=== PATIENT | female | born 1965 | race Caucasian/White ===

== ENCOUNTER 2019-07-17 14:35 | Emergency (ER) | payer OTHER, SELFPAY ==
--- OUTSIDE RECORDS SUMMARY | 2019-07-17 14:38 | XMS REPORT ---
:1965 [facility] Address [address] [place] [address] Dr. Beltran [address] [place] [id number] Care Team Providers Name Role Phone Unavailable Unavailable Unavailable Problems This patient has no known problems. Allergies, Adverse Reactions, Alerts This patient has no known allergies or adverse reactions. Medications This patient has no known medications. Encounters Start End Encounter Admission Attending Care Care Encounter Date/Time Date/Time Type Type Clinicians Facility Department ID 2018-12-03 2018-12-03 Outpatient [facility] [place] [id number] 11:40:00 11:40:00
[2019-07-17] MEDS ORDERED: LIDOCAINE 1% MPF 5 ML VIAL ONE (15:53)
[2019-07-17] MEDS ORDERED: BUPIVACAINE 0.5% PF 10 ML VIAL ONE (15:53)
--- NOTE | 2019-07-17 16:12 | EDPHYS ---
Physician Documentation [facility] Name: Michelle Lewis Age: 53 yrs Sex: Female : 1965 Arrival Date: 07/17/2019 Time: 14:38 Bed 8 Private MD: ED Physician Magalie Sneed HPI: 07/17 15:34 This 53 yrs old Female presents to ER via Ambulatory with complaints of jmm Laceration To Hand. 15:34 The patient has a laceration related to: doing carpentry. Onset: The symptoms/episode jmm began/occurred acutely. The patient has not experienced similar symptoms in the past. This is a 53 year old female with a history of bipolar that presents to the ED with complaints of pain and bleeding to her right thumb after accidently cutting her right thumb with a Dremel saw. Patient states she it UTD on immunizations. . 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 - Social history:: Smoking status: Patient denies any tobacco usage or history of. - Ebola Screening: : No symptoms or risks identified at this time. ROS: 15:34 Constitutional: Negative for fever, chills, and weight loss, Cardiovascular: Negative jmm for chest pain, palpitations, and edema, Respiratory: Negative for shortness of breath, cough, wheezing, and pleuritic chest pain. 15:34 MS/extremity: Positive for injury or acute deformity, laceration. 15:34 All other systems are negative. Exam: 15:34 Constitutional: This is a well developed, well nourished patient who is awake, alert, jmm and in no acute distress. Head/Face: atraumatic. Eyes: EOMI, no conjunctival erythema appreciated ENT: Moist Mucus Membranes Neck: Trachea midline, Supple Chest/axilla: Normal chest wall appearance and motion. Cardiovascular: Regular rate and rhythm. No edema appreciated Respiratory: Normal respirations, no respiratory distress appreciated Abdomen/GI: Non distended, soft Back: Normal ROM 15:34 Musculoskeletal/extremity: FROM appreciated to the right thumb against resistance, < 2 sec dist cap refill, NVI. 15:34 Skin: laceration noted to the right thumb. 15:34 Neuro: Orientation: is normal, Mentation: is normal, Memory: is normal. 15:34 Psych: Behavior/mood is pleasant, cooperative. Vital Signs: 15:17 BP 135 / 74; Pulse 92; Resp 16 S; Temp 97.3(O); Pulse Ox 96% on R/A; Pain 6/10; jl7 Laceration: 16:10 Wound Repair of 2cm ( 0.8in ) subcutaneous laceration to right hand and dorsal aspect jmm of proximal phalanx of right thumb. Distal neuro/vascular/tendon intact. Anesthesia: Local anesthetic administered with 3 mls of 1% lidocaine. Wound prep: Simple cleansing, Moderate cleansing with betadine by me. Skin closed with 4 5-0 Prolene using simple sutures and sterile technique. Patient tolerated well. MDM: 15:33 Patient medically screened. m 16:10 Data reviewed: vital signs, nurses notes. Counseling: I had a detailed discussion with jose carlos the patient and/or guardian regarding: the historical points, exam findings, and any diagnostic results supporting the discharge/admit diagnosis, the need for outpatient follow up, to return to the emergency department if symptoms worsen or persist or if there are any questions or concerns that arise at home. ED course: Patient given wound infection return precautions. Patient understood and agrees with the plan of care. . Administered Medications: 15:58 Drug: Lidocaine (1 %) 5 ml {Note: by DIANE Florez.} Volume: 5 ml; Route: Infiltration; hb 15:59 Drug: Marcaine (0.5 %) 10 ml {Note: by DIANE Florez.} Volume: 10 ml; Route: Infiltration; hb Disposition: 18:20 Co-signature as Attending Physician, Magalie Sneed MD. ma2 Disposition: 07/17/19 16:12 Discharged to Home. Impression: Laceration of the Right Thumb. - Condition is Stable. - Discharge Instructions: Laceration Care, Adult. - Prescriptions for Cephalexin 500 mg Oral Capsule - take 1 capsule by ORAL route every 6 hours for 10 days; 40 capsule. - Medication Reconciliation Form, Thank You Letter, Antibiotic Education, Prescription Opioid Use form. - Follow up: Private Physician; When: 7 - 10 days; Reason: Recheck today's complaints, Continuance of care, Staple/Suture removal, Re-evaluation by your physician. Signatures: Gautam Casiano PA PA jmm Baxter, Heather, RN RN Rey Robertson RN RN jl7 Magalie Sneed MD MD ma2 Corrections: (The following items were deleted from the chart) 16:35 16:12 07/17/2019 16:12 Discharged to Home. Impression: Laceration of the Right Thumb. hb Condition is Stable. Forms are Medication Reconciliation Form, Thank You Letter, Antibiotic Education, Prescription Opioid Use. Follow up: Private Physician; When: 7 - 10 days; Reason: Recheck today's complaints, Continuance of care, Staple/Suture removal, Re-evaluation by your physician. jose carlos
--- NOTE | 2019-07-17 16:12 | ER ---
Nurse's Notes [facility] Name: Michelle Lewis Age: 53 yrs Sex: Female : 1965 Arrival Date: 07/17/2019 Time: 14:38 Bed 8 Private MD: Diagnosis: Laceration of the Right Thumb Presentation: 07/17 15:14 Presenting complaint: Patient states: Cut right thumb on handsaw saw 30 minutes ago. jl7 Transition of care: patient was not received from another setting of care. Complicating Factors: There are no complicating factors for this patient. Onset of symptoms was July 17, 2019 at 14:30. Risk Assessment: Do you want to hurt yourself or someone else? Patient reports no desire to harm self or others. Initial Sepsis Screen: Does the patient meet any 2 criteria? No. Patient's initial sepsis screen is negative. Does the patient have a suspected source of infection? No. Patient's initial sepsis screen is negative. Care prior to arrival: Bleeding of injury controlled. 15:14 Method Of Arrival: Ambulatory [facility] 15:14 Acuity: RO 4 jl7 Triage Assessment: 15:17 General: Appears in no apparent distress. uncomfortable, Behavior is cooperative, jl7 anxious. Pain: Complains of pain in right thumb Pain currently is 6 out of 10 on a pain scale. Quality of pain is described as throbbing. Injury Description: Laceration sustained to dorsal aspect of proximal phalanx of right thumb is 2.6 to 7.5 cm long, was sustained 30-60 minutes ago. is bleeding a small amount. 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 - Social history:: Smoking status: Patient denies any tobacco usage or history of. - Ebola Screening: : No symptoms or risks identified at this time. Screenin:56 Abuse screen: Denies threats or abuse. Denies injuries from another. Nutritional hb screening: No deficits noted. Tuberculosis screening: No symptoms or risk factors identified. Fall Risk None identified. Assessment: 15:50 General: Appears in no apparent distress. Pain: Pain currently is 5 out of 10 on a pain hb scale. Neuro: Level of Consciousness is awake, alert, obeys commands, Oriented to person, place, time, situation. Cardiovascular: Capillary refill < 3 seconds Patient's skin is warm and dry. Respiratory: Airway is patent Respiratory effort is even, unlabored, Respiratory pattern is regular, symmetrical. GI: No signs and/or symptoms were reported involving the gastrointestinal system. : No signs and/or symptoms were reported regarding the genitourinary system. EENT: No signs and/or symptoms were reported regarding the EENT system. Derm: Skin is pink, warm \T\ dry. Musculoskeletal: No signs and/or symptoms reported regarding the musculoskeletal system. Injury Description: Laceration sustained to dorsal aspect of proximal phalanx of right thumb is clean, 2.6 to 7.5 cm long, light bleeding was sustained 30-60 minutes ago. 15:58 Reassessment: DIANE Florez at bedside for laceration repair. hb 16:30 Reassessment: Patient appears in no apparent distress at this time. Patient and/or hb family updated on plan of care and expected duration. Pain level reassessed. Patient is alert, oriented x 3, equal unlabored respirations, skin warm/dry/pink. Vital Signs: 15:17 BP 135 / 74; Pulse 92; Resp 16 S; Temp 97.3(O); Pulse Ox 96% on R/A; Pain 6/10; jl7 ED Course: 14:38 Patient arrived in ED. rg4 15:15 Triage completed. jl7 15:17 Arm band placed on right wrist. jl7 15:22 Gautam Casiano PA is PHCP. [facility] 15:22 Magalie Sneed MD is Attending Physician. [facility] 15:50 Patient has correct armband on for positive identification. Bed in low position. Call hb light in reach. 15:56 [address] Crooks, NIDA is Primary Nurse. hb 16:30 No provider procedures requiring assistance completed. Patient did not have IV access hb during this emergency room visit. Administered Medications: 15:58 Drug: Lidocaine (1 %) 5 ml {Note: by DIANE Florez.} Volume: 5 ml; Route: Infiltration; hb 15:59 Drug: Marcaine (0.5 %) 10 ml {Note: by DIANE Florez.} Volume: 10 ml; Route: Infiltration; hb Outcome: 16:12 Discharge ordered by MD. branch 16:30 Discharged to home ambulatory, with significant other. hb 16:30 Condition: stable 16:30 Discharge instructions given to patient, Instructed on discharge instructions, follow up and referral plans. medication usage, wound care, Demonstrated understanding of instructions, follow-up care, medications, wound care, Prescriptions given X 1. 16:35 Patient left the ED. hb Signatures: Gautam Casiano PA PA jmm Baxter, Heather, RN RN Julita Krause rg4 Rey Robertson RN RN jl7 Corrections: (The following items were deleted from the chart) 15:21 15:17 BP 135 / 74; Pulse 92bpm; Resp 16bpm; Spontaneous; Pulse Ox 96% RA; Temp 97.3F jl7 Oral; Pain 10/10; jl7
[2019-07-17 16:48] VITALS: BP 135/74; TEMP 97.3; O2SAT 96
== END 2019-07-17 16:35 | disposition home or self-care (01) ==
LOC: ER 14:35
PROC: 0JQJ0ZZ Repair Right Hand Subcutaneous Tissue and Fascia, Open Approach (ICD-10-PCS; principal; 2019-07-17)
DX: S61.011A Laceration without foreign body of right thumb without damage to nail, initial encounter (principal); W29.8XXA Contact with other powered hand tools and household machinery, initial encounter; Y93.89 Activity, other specified; Y92.9 Unspecified place or not applicable; E03.9 Hypothyroidism, unspecified; F31.9 Bipolar disorder, unspecified; Z93.1 Gastrostomy status
CPT/HCPCS: 99283

== ENCOUNTER 2020-11-19 07:59 | Emergency (ER) | payer SELFPAY ==
--- OUTSIDE RECORDS SUMMARY | 2020-11-19 08:02 | XMS REPORT | Continuity of Care Document ---
:1965 Author Organization [facility] t Address [address] [place] [address] Dr. Beltran [address] [place] [id number] Care Team Providers Name Role Phone Unavailable Unavailable Unavailable Problems This patient has no known problems. Allergies, Adverse Reactions, Alerts This patient has no known allergies or adverse reactions. Medications This patient has no known medications. Procedures This patient has no known procedures. Encounters Start End Encounter Admission Attending Care Care Encounter Source Date/Time Date/Time Type Type Clinicians Facility Department ID 2018-12-03 2018-12-03 Outpatient [facility]SE [facility] [id number] MH 11:40:00 11:40:00 Lluvia mena [facility] Results This patient has no known results.
[2020-11-19] MEDS ORDERED: HYDROCODONE/APAP 5/325 MG TAB ONE (08:41)
--- NOTE | 2020-11-19 10:22 | EDPHYS ---
Physician Documentation [facility] Name: Michelle Lewis Age: 55 yrs Sex: Female : 1965 Arrival Date: 11/19/2020 Time: 08:01 Bed 13 Private MD: Rogers Riggins T ED Physician Magalie Sneed HPI: 11/19 10:06 This 55 yrs old Female presents to ER via Ambulatory with complaints of Fall ma2 Injury, Arm Pain, Shoulder Pain. 10:06 Details of fall: The patient fell from an upright position. Onset: The symptoms/episode ma2 began/occurred suddenly, 1 day(s) ago. Severity of symptoms: At their worst the symptoms were mild, in the emergency department the symptoms are unchanged. The patient has not experienced similar symptoms in the past. tripped and fell yesterday has left shoulder an forearm pain and right knee pain . Historical: - Allergies: 08:14 No Known Allergies; tr6 - Home Meds: 08:14 levothyroxine oral [Active]; liothyronine Oral [Active]; Tramadol Oral [Active]; tr6 morphine pump [Active]; Seroquel Oral [Active]; Wellbutrin Oral [Active]; Methocarbamol Oral [Active]; - PMHx: 08:14 Bipolar disorder; Chronic pain; Hypothyroidism; tr6 - PSHx: 08:14 back surgery; Cholecystectomy; Gastric Bypass; Knee surgery; Carpal Tunnel Repair; tr6 - Immunization history:: Adult Immunizations up to date. - Social history:: Smoking status: unknown. - Family history:: not pertinent. ROS: 10:06 Constitutional: Negative for fever, chills, and weight loss, Cardiovascular: Negative ma2 for chest pain, palpitations, and edema, Respiratory: Negative for shortness of breath, cough, wheezing, and pleuritic chest pain, Abdomen/GI: Negative for abdominal pain, nausea, diarrhea, and constipation. 10:06 All other systems are negative. Exam: 10:06 Constitutional: This is a well developed, well nourished patient who is awake, alert, ma2 and in no acute distress. Head/Face: Normocephalic, atraumatic. Eyes: Pupils equal round and reactive to light, extra-ocular motions intact. Lids and lashes normal. Conjunctiva and sclera are non-icteric and not injected. Cornea within normal limits. Periorbital areas with no swelling, redness, or edema. ENT: Nares patent. No nasal discharge, no septal abnormalities noted. Tympanic membranes are normal and external auditory canals are clear. Oropharynx with no redness, swelling, or masses, exudates, or evidence of obstruction, uvula midline. Mucous membranes moist. Neck: Trachea midline, no thyromegaly or masses palpated, and no cervical lymphadenopathy. Supple, full range of motion without nuchal rigidity, or vertebral point tenderness. No Meningismus. Chest/axilla: Normal chest wall appearance and motion. Nontender with no deformity. No lesions are appreciated. Cardiovascular: Regular rate and rhythm with a normal S1 and S2. No gallops, murmurs, or rubs. Normal PMI, no JVD. No pulse deficits. Respiratory: Lungs have equal breath sounds bilaterally, clear to auscultation and percussion. No rales, rhonchi or wheezes noted. No increased work of breathing, no retractions or nasal flaring. Abdomen/GI: Soft, non-tender, with normal bowel sounds. No distension or tympany. No guarding or rebound. No evidence of tenderness throughout. Skin: Warm, dry with normal turgor. Normal color with no rashes, no lesions, and no evidence of cellulitis. MS/ Extremity: Pulses equal, no cyanosis. Neurovascular intact. Full, normal range of motion. Neuro: Awake and alert, GCS 15, oriented to person, place, time, and situation. Cranial nerves II-XII grossly intact. Motor strength 5/5 in all extremities. Sensory grossly intact. Cerebellar exam normal. Normal gait. Vital Signs: 08:10 BP 126 / 78; Pulse 99; Resp 18; Temp 98.6; Pulse Ox 99% on R/A; tr6 10:32 BP 104 / 57; Pulse 71; Resp 18; Pulse Ox 97% on R/A; tr6 MDM: 08:07 Patient medically screened. ma2 10:06 Differential diagnosis: abrasion, fracture, sprain, strain. Data reviewed: vital signs, ma2 nurses notes. Counseling: I had a detailed discussion with the patient and/or guardian regarding: the historical points, exam findings, and any diagnostic results supporting the discharge/admit diagnosis, the presence of at least one elevated blood pressure reading (>120/80) during this emergency department visit. Medical screen evaluation completed. EMTALA emergency medical condition absent. Response to treatment: the patient's symptoms have markedly improved after treatment. 11/19 08:13 Order name: Shoulder Left (2 View) XRAY ma2 11/19 08:13 Order name: Elbow Left 3 View XRAY ma2 11/19 08:13 Order name: Forearm Left XRAY ma2 11/19 08:13 Order name: Knee Right 3 View XRAY ma2 Administered Medications: 08:26 Not Given (changed order): [place] (HYDROcodone-acetaminophen) (7.5 mg-325 mg) 2 tabs PO tr6 once; RASS on ADMIN: Combtv4, Very Agttd3, Agttd2, Rstlss1, AlertClm0, Drwsy-1, Lt Sdtn-2, Mod Sdtn-3, Dp Sdtn-4, UnArsble-5 08:27 Drug: [place] (HYDROcodone-acetaminophen) 5 mg-325 mg 1 tabs Route: PO; tr6 09:12 Follow up: Response: Pain is decreased tr6 Disposition: 11/19/20 10:21 Discharged to Home. Impression: Other sprain of left elbow, Sprain of other specified parts of right knee. - Condition is Stable. - Discharge Instructions: Elbow Contusion, [id number]. - Prescriptions for Tramadol 50 mg Oral Tablet - take 1 tablet by ORAL route every 8 hours as needed; 12 tablet. - Medication Reconciliation Form, Thank You Letter, Antibiotic Education, Prescription Opioid Use form. - Follow up: Private Physician; When: Tomorrow; Reason: Continuance of care. Signatures: Dispatcher [employer] EDMS Magalie Sneed MD MD ma2 Heather Kelley RN RN tr6 Corrections: (The following items were deleted from the chart) 10:57 10:21 11/19/2020 10:21 Discharged to Home. Impression: Other sprain of left elbow; tr6 Sprain of other specified parts of right knee. Condition is Stable. Discharge Instructions: Elbow Contusion, [id number]. Prescriptions for Tramadol 50 mg Oral Tablet - take 1 tablet by ORAL route every 8 hours as needed; 12 tablet. and Forms are Medication Reconciliation Form, Thank You Letter, Antibiotic Education, Prescription Opioid Use. Follow up: Private Physician; When: Tomorrow; Reason: Continuance of care. ma2
--- NOTE | 2020-11-19 10:22 | ER ---
Nurse's Notes [facility] Name: Michelle Lewis Age: 55 yrs Sex: Female : 1965 Arrival Date: 11/19/2020 Time: 08:01 Bed 13 Private MD: Rogers Riggins T Diagnosis: Other sprain of left elbow;Sprain of other specified parts of right knee Presentation: 11/19 08:10 Chief complaint: Patient states: mechanical fall yesterday hitting left arm/ shoulder. tr6 c/o left shoulder, elbow, and wrist pain. Coronavirus screen: Client denies travel out of the [place] in the last 14 days. Ebola Screen: Patient negative for fever greater than or equal to 101.5 degrees Fahrenheit, and additional compatible Ebola Virus Disease symptoms Patient denies exposure to infectious person. Patient denies travel to an Ebola-affected area in the 21 days before illness onset. Initial Sepsis Screen: Does the patient meet any 2 criteria? No. Patient's initial sepsis screen is negative. Does the patient have a suspected source of infection? No. Patient's initial sepsis screen is negative. Risk Assessment: Do you want to hurt yourself or someone else? Patient reports no desire to harm self or others. Onset of symptoms was November 18, 2020. 08:10 Method Of Arrival: Ambulatory tr6 08:10 Acuity: RO 3 tr6 08:15 Mechanism of Injury:. tr6 Historical: - Allergies: 08:14 No Known Allergies; tr6 - Home Meds: 08:14 levothyroxine oral [Active]; liothyronine Oral [Active]; Tramadol Oral [Active]; tr6 morphine pump [Active]; Seroquel Oral [Active]; Wellbutrin Oral [Active]; Methocarbamol Oral [Active]; - PMHx: 08:14 Bipolar disorder; Chronic pain; Hypothyroidism; tr6 - PSHx: 08:14 back surgery; Cholecystectomy; Gastric Bypass; Knee surgery; Carpal Tunnel Repair; tr6 - Immunization history:: Adult Immunizations up to date. - Social history:: Smoking status: unknown. - Family history:: not pertinent. Screenin:14 Abuse screen: Denies threats or abuse. Denies injuries from another. Nutritional tr6 screening: No deficits noted. Tuberculosis screening: No symptoms or risk factors identified. Fall Risk Fall in past 12 months (25 points). Assessment: 08:16 General: Appears in no apparent distress. Behavior is calm, cooperative, appropriate tr6 for age. Pain: Complains of pain in left shoulder, left elbow, left wrist. Neuro: No deficits noted. Cardiovascular: No deficits noted. Respiratory: No deficits noted. GI: No deficits noted. : No deficits noted. EENT: No deficits noted. Derm: slight swelling noted to pts left elbow. s/p echanical fall on to left arm. Musculoskeletal: Reports limited movement in left wrist and fingers. 09:42 Reassessment: pt repositioned and updated on POC. tr6 10:33 Reassessment: Patient appears in no apparent distress at this time. No changes from tr6 previously documented assessment. Patient and/or family updated on plan of care and expected duration. Pain level reassessed. 10:57 Reassessment: pt provided with a sling for left arm. tr6 Vital Signs: 08:10 BP 126 / 78; Pulse 99; Resp 18; Temp 98.6; Pulse Ox 99% on R/A; tr6 10:32 BP 104 / 57; Pulse 71; Resp 18; Pulse Ox 97% on R/A; tr6 ED Course: 08:01 Patient arrived in ED. mr 08:02 Rogers Riggins MD is Private Physician. mr 08:07 Magalie Sneed MD is Attending Physician. ma2 08:10 Heather Kelley, NIDA is Primary Nurse. tr6 08:11 Triage completed. tr6 08:14 No apparent distress. tr6 08:14 Patient has correct armband on for positive identification. Fall risk band placed. Bed tr6 in low position. Call light in reach. Side rails up X 1. 08:14 No provider procedures requiring assistance completed. tr6 09:07 Shoulder Left (2 View) XRAY In Process Unspecified. EDMS 09:07 Elbow Left 3 View XRAY In Process Unspecified. EDMS 09:07 Forearm Left XRAY In Process Unspecified. EDMS 09:08 Knee Right 3 View XRAY In Process Unspecified. EDMS Administered Medications: 08:26 Not Given (changed order): [place] (HYDROcodone-acetaminophen) (7.5 mg-325 mg) 2 tabs PO tr6 once; RASS on ADMIN: Combtv4, Very Agttd3, Agttd2, Rstlss1, AlertClm0, Drwsy-1, Lt Sdtn-2, Mod Sdtn-3, Dp Sdtn-4, UnArsble-5 08:27 Drug: [place] (HYDROcodone-acetaminophen) 5 mg-325 mg 1 tabs Route: PO; tr6 09:12 Follow up: Response: Pain is decreased tr6 Outcome: 10:21 Discharge ordered by . fracisco 10:33 Discharged to home ambulatory. tr6 10:33 Condition: stable 10:33 Discharge instructions given to patient, Instructed on discharge instructions, follow up and referral plans. no drinking with medication, medication usage, safety practices, Demonstrated understanding of instructions, follow-up care, medications, Prescriptions given X 1. 10:57 Patient left the ED. tr6 Signatures: Dispatcher [employer] Barbara Mosquera Mohammad, MD MD ma2 Ramnanan, Tiffany RN RN tr6
--- NOTE | 2020-11-19 10:52 | RAD REPORT ---
EXAM DESCRIPTION: RAD - Shoulder Left 2 View - 11/19/2020 9:07 am CLINICAL HISTORY: Left shoulder pain status post fall FINDINGS: No fracture or dislocation is seen.
--- NOTE | 2020-11-19 10:56 | RAD REPORT ---
EXAM DESCRIPTION: RAD - Knee Right 3 View - 11/19/2020 9:08 am CLINICAL HISTORY: Right knee pain status post injury FINDINGS: Marked osteoarthritis medial compartment. No fracture or dislocation is visualized. If the patient continues to have symptoms to suggest an occ ult fracture, ligamentous or meniscal injury then MRI would recommended
--- NOTE | 2020-11-19 11:00 | RAD REPORT ---
EXAM DESCRIPTION: RAD - Forearm Left - 11/19/2020 9:08 am CLINICAL HISTORY: Left forearm pain status post injury FINDINGS: No fracture or dislocation seen. However, there is elevation of the anterior humeral pad . In the setting of trauma this usually indic ates a hemarthrosis suggestive of an occult fracture.
--- NOTE | 2020-11-19 11:00 | RAD REPORT ---
EXAM DESCRIPTION: RAD - Elbow Left 3 View - 11/19/2020 9:08 am CLINICAL HISTORY: Left elbow pain status post trauma FINDINGS: No fracture or dislocation seen. However, there is elevation of the anterior humeral pad . In the setting of trauma this usually indic ates a hemarthrosis suggestive of an occult fracture.
[2020-11-19 11:01] VITALS: TEMP 98.6
[2020-11-19 11:03] VITALS: BP 104/57; O2SAT 97
== END 2020-11-19 10:57 | disposition home or self-care (01) ==
LOC: ER 07:59
DX: S53.492A Other sprain of left elbow, initial encounter (principal); S83.8X1A Sprain of other specified parts of right knee, initial encounter; E03.9 Hypothyroidism, unspecified; F31.9 Bipolar disorder, unspecified; W01.0XXA Fall on same level from slipping, tripping and stumbling without subsequent striking against object, initial encounter
CPT/HCPCS: 99283

== ENCOUNTER 2024-04-26 08:26 | Emergency (ER) | payer OTHER ==
[2024-04-26] MEDS ORDERED: FENTANYL CITR 100 MCG/2 ML ONE (09:46)
[2024-04-26 09:55] LABS: Absolute Eosinophils 0.3 K/uL (0-0.5); Absolute Lymphocytes (CBC) 1.7 K/uL (0.7-4.9); Absolute Monocytes 0.5 K/uL (0.1-1.3); Absolute Neutrophil 2.8 K/uL (1.8-8.0); Basophils % 0.8 % (0-1.3); Eosinophils % 5.7 % (0-4.4); Hematocrit 37.3 % (36.0-45.0); Hemoglobin 12.2 g/dL (12.0-15.0); Lymphocytes % 32.7 % (15.3-44.8); MCH 29.5 pg (27.0-35.0); MCHC 32.8 g/dL (32.0-36.0); MCV 89.9 fL (80-100); Monocytes % 9.2 % (3.3-12.3); Neutrophils % 51.6 % (41.7-73.7); Nucleated Red Blood Cells % 0.1 % (0-0); Platelets 232 thou/uL (152-406); RBC Red Blood Cell Count 4.15 M/uL (3.86-4.86); Red Cell Distribution Width 13.8 % (12.1-15.2)
--- NOTE | 2024-04-26 10:03 | RAD REPORT ---
EXAMINATION: XR RIGHT KNEE CLINICAL INDICATION: Female, 58 years old. Pain;Swelling TECHNIQUE: Multiple views of the right knee were obtained. COMPARISON: 11/19/2020 FINDINGS: Right total knee arthroplasty is noted. No evidence of hardware loosening or infection. Sma ll suprapatellar joint effusion.
[2024-04-26 10:13] LABS: ALT/SGPT 33 U/L (13-56); AST/SGOT 27 U/L (15-37); Albumin 3.4 g/dL (3.4-5.0); Albumin/Globulin Ratio 1.1 (1.1-1.8); Alkaline Phosphatase 128 U/L (45-117); Anion Gap 6.2 mEq/L (5.0-15.0); BUN Blood Urea Nitrogen 8 mg/dL (7-18); Bicarbonate 29 mEq/L (21-32); Bilirubin Total 0.4 mg/dL (0.2-1.0); C-Reactive Protein < 2.90 mg/L (<3.00); Globulin 3.1 g/dL (2.3-3.5); Glomerular Filtration Rate 73 ml/min (=/>90); Glucose Level 96 mg/dL (74-106); Potassium 4.2 mEq/L (3.5-5.1); Protein, Total 6.5 g/dL (6.4-8.2); Sodium Level 142 mEq/L (136-145)
--- NOTE | 2024-04-26 10:15 | RAD REPORT ---
EXAMINATION: US RIGHT LOWER EXTREMITY VENOUS DOPPLER CLINICAL INDICATION: Pain;Swelling RIGHT TECHNIQUE: Complete bilateral duplex sonography of the RIGHT lower extremity veins was performed. The examination included compression for vein patency, color Doppler imaging and flow augmentation in response to distal compression of the distal external iliac, common femoral, femoral, popliteal, tibi al, and great and small saphenous veins. COMPARISON: No prior exam. FINDINGS: Duplex sonography testing of the veins of the RIGHT lower extremity was performed. Color flow imaging shows all veins to be compressible with [id number] color filling. Pulsatile and phasic flow is present within all lower extremity deep and superficial veins examined. Several fluid collections are seen surrounding the knee. IMPRESSION: There is no deep vein or superficial vein thrombosis.
--- NOTE | 2024-04-26 10:35 | ER ---
Nurse's Notes [facility] Name: Michelle Lewis Age: 58 yrs Sex: Female : 1965 Arrival Date: 04/26/2024 Time: 08:26 Bed 5 Private MD: Diagnosis: Pain in right knee Presentation: 04/26 08:39 Chief complaint: Patient states: knee replacement on mar 29 , has had a lot of iw swelling and redness X 1 week. Coronavirus screen: At this time, the client does not indicate any symptoms associated with coronavirus-19. Ebola Screen: No symptoms or risks identified at this time. Initial Sepsis Screen: Does the patient meet any 2 criteria? No. Patient's initial sepsis screen is negative. Does the patient have a suspected source of infection? No. Patient's initial sepsis screen is negative. Risk Assessment: Do you want to hurt yourself or someone else? Patient reports no desire to harm self or others. Onset of symptoms was April 19, 2024. 08:39 Method Of Arrival: Ambulatory iw 08:39 Acuity: RO 3 iw Historical: - Allergies: 08:43 No Known Allergies; iw - PMHx: 08:43 Bipolar disorder; Chronic pain; Hypothyroidism; iw - PSHx: 08:43 Cholecystectomy; gastric bypass; gilles knee; back; iw - Immunization history:: Adult Immunizations not up to date. - Infectious Disease History:: Denies. - Social history:: Smoking status: Patient denies any tobacco usage or history of. Screenin:50 [facility] ED Fall Risk Assessment (Adult) History of falling in the last 3 months, mb9 including since admission No falls in past 3 months (0 pts) Confusion or Disorientation No (0 pts) Intoxicated or Sedated No (0 pts) Impaired Gait No (0 pts) Mobility Assist Device Used No (0 pt) Altered Elimination No (0 pt) Score/Fall Risk Level 0 - 2 = Low Risk Oriented to surroundings, Maintained a safe environment, Educated pt \T\ family on fall prevention, incl call for assistance when getting out of bed. Abuse screen: Denies threats or abuse. Nutritional screening: No deficits noted. Tuberculosis screening: No symptoms or risk factors identified. Assessment: 09:49 General: Appears in no apparent distress. Behavior is calm, cooperative. Pain: Denies mb9 pain. Neuro: Nesbitt Agitation-Sedation Scale (RASS): 0 - Alert and Calm Level of Consciousness is awake, alert, obeys commands, Oriented to person, place, time, situation, Appropriate for age. Cardiovascular: Patient's skin is warm and dry. Respiratory: Airway is patent Respiratory effort is even, unlabored, Respiratory pattern is regular, symmetrical. GI: No signs and/or symptoms were reported involving the gastrointestinal system. : No signs and/or symptoms were reported regarding the genitourinary system. EENT: No signs and/or symptoms were reported regarding the EENT system. Derm: Skin is pink, warm \T\ dry. Musculoskeletal: Range of motion: intact in all extremities, Swelling present in right patella. 10:46 Reassessment: No changes from previously documented assessment. Patient and/or family mb9 updated on plan of care and expected duration. Pain level reassessed. Patient is alert, oriented x 3, equal unlabored respirations, skin warm/dry/pink. Vital Signs: 08:44 BP 125 / 59; Pulse 92; Resp 18; Temp 98.2(O); Pulse Ox 100% on R/A; Weight 115.67 kg; iw Height 5 ft. 7 in. ; Pain 0/10; 10:32 Pulse 80; Resp 16; Pulse Ox 98% ; mb9 08:44 Body Mass Index 39.94 (115.67 kg, 170.18 cm) iw 08:44 Pain Scale: Adult iw ED Course: 08:28 Patient arrived in ED. mr 08:40 Triage completed. iw 08:44 Arm band placed on. iw 08:45 Miguel Garcia PA is PHCP. cp 08:45 Zion Holly DO is Attending Physician. cp 09:20 Barbara Rae, NIDA is Primary Nurse. mb9 09:43 US Extremity Venous Unilateral Ltd In Process Unspecified. EDMS 09:47 XRAY Knee RIGHT 3 view In Process Unspecified. EDMS 09:49 Initial lab(s) drawn, by me, sent to lab. Inserted saline lock: 18 gauge in right mb9 antecubital area, using aseptic technique. Blood collected. Flushed with 10 mL NS. 09:50 Bed in low position. Call light in reach. Side rails up X 1. Provided Education on: mb9 press call light if needing anything. Client placed on continuous cardiac and pulse oximetry monitoring. NIBP monitoring applied. 09:51 CRP Sent. mb9 09:51 CMP Sent. mb9 09:51 CBC with Diff Sent. mb9 10:46 No provider procedures requiring assistance completed. IV discontinued, intact, mb9 bleeding controlled, No redness/swelling at site. Pressure dressing applied. Administered Medications: 09:50 Not Given (Patient Refused): fentanyl (pf)25 mcg IVP once kc6 10:38 Drug: Cephalexin PO 500 mg PO once Route: PO; mb9 10:46 Follow up: Response: No adverse reaction mb9 Medication: 09:51 VIS not applicable for this client. mb9 Outcome: 10:35 Discharge ordered by MD. cp 10:46 Discharged to home ambulatory, mb9 10:46 Condition: stable 10:46 Discharge instructions given to patient, Instructed on discharge instructions, follow up and referral plans. Demonstrated understanding of instructions, follow-up care, medications, Prescriptions given X 2, 10:47 Patient left the ED. mb9 Signatures: Dispatcher [employer] EDNM Barbara Parr, Carlos Gonzalez mr Tsering Grimaldo, RN RN Miguel Mak PA PA cp Wilkerson, Mary Beth, NIDA RN Bailee Lemus RN kc6 Corrections: (The following items were deleted from the chart) 08:54 08:44 BP 125 / 59; Pulse 92bpm; Resp 18bpm; Pulse Ox 100% RA; 115.67 kg; Height 5 ft. 7 iw in.; BMI: 39.9; Pain 0/10, Adult; iw
--- NOTE | 2024-04-26 10:35 | EDPHYS ---
Physician Documentation [facility] Name: Michelle Lewis Age: 58 yrs Sex: Female : 1965 Arrival Date: 04/26/2024 Time: 08:26 Bed 5 Private MD: ED Physician Zion Holly HPI: 04/26 08:50 This 58 yrs old Female presents to ER via Ambulatory with complaints of Knee swelling. cp 08:50 Associated signs and symptoms: Pertinent positives: pain and swelling to right knee and cp leg times 1 week, Pertinent negatives: fever, chills, body aches. Hx of total knee replacement surgery 03/29/2024 by physician in [place]. 08:50 Modifying factors: The patient symptoms are alleviated by nothing, the patient symptoms cp are aggravated by activity. Historical: - Allergies: 08:43 No Known Allergies; iw - PMHx: 08:43 Bipolar disorder; Chronic pain; Hypothyroidism; iw - PSHx: 08:43 Cholecystectomy; gastric bypass; gilles knee; back; iw - Immunization history:: Adult Immunizations not up to date. - Infectious Disease History:: Denies. - Social history:: Smoking status: Patient denies any tobacco usage or history of. ROS: 08:52 Constitutional: Negative for body aches, chills, fever, cp 08:52 MS/extremity: Positive for pain, swelling, tenderness, warmth, of the right knee and right leg, Negative for injury or acute deformity, 08:52 Eyes: Negative for injury, pain, redness, and discharge, cp 08:52 Cardiovascular: Negative for chest pain, palpitations, 08:52 Respiratory: Negative for cough, shortness of breath, wheezing, 08:52 Abdomen/GI: Negative for abdominal pain, nausea, vomiting, and diarrhea, 08:52 Back: Negative for pain at rest, pain with movement, 08:52 All other systems are negative, Exam: 08:55 Constitutional: The patient appears in no acute distress, alert, awake, cp non-diaphoretic, non-toxic, well developed, well nourished, obese, 08:55 Head/Face: Normocephalic, atraumatic. cp 08:55 Eyes: Periorbital structures: appear normal, Conjunctiva: normal, no exudate, no injection, Sclera: no appreciated abnormality, Lids and lashes: appear normal, bilaterally, 08:55 ENT: External ear(s): are unremarkable, Nose: is normal, Mouth: Lips: moist, Oral mucosa: pink and intact, moist, 08:55 Chest/axilla: Inspection: normal, 08:55 Cardiovascular: Rate: normal, Pulses: Pulses are 2+ in right dorsalis pedis artery. JVD: is not appreciated, 08:55 Respiratory: the patient does not display signs of respiratory distress, Respirations: normal, no use of accessory muscles, no retractions, labored breathing, is not present, Breath sounds: are clear throughout, no decreased breath sounds, no stridor, no wheezing, 08:55 Abdomen/GI: Exam negative for discomfort, distension, guarding, Inspection: abdomen appears normal, 08:55 Back: pain, is absent, ROM is normal, 08:55 Musculoskeletal/extremity: ROM: full passive range of motion, in the right knee, limited passive range of motion due to pain, in the right knee, mild, the right leg Sensation intact. overlying skin with mild erythema, swelling noted. 08:55 Skin: no rash present. Vital Signs: 08:44 BP 125 / 59; Pulse 92; Resp 18; Temp 98.2(O); Pulse Ox 100% on R/A; Weight 115.67 kg; iw Height 5 ft. 7 in. ; Pain 0/10; 10:32 Pulse 80; Resp 16; Pulse Ox 98% ; mb9 08:44 Body Mass Index 39.94 (115.67 kg, 170.18 cm) iw 08:44 Pain Scale: Adult iw MDM: 08:49 Medical Screening Exam initiated cp 10:35 Data reviewed: vital signs, nurses notes, lab test result(s), radiologic studies, plain cp films, ultrasound, and as a result, I will discharge patient. 10:35 Differential diagnosis: cellulitis, dvt, abscess, septic joint. I considered the cp following discharge prescriptions or medication management in the emergency department Medications were administered in the Emergency Department. See MAR. Counseling: I had a detailed discussion with the patient and/or guardian regarding the historical points, exam findings, and any diagnostic results supporting the discharge/admit diagnosis, lab results, radiology results, the need for outpatient follow up, a orthopedic surgeon, to return to the emergency department if symptoms worsen or persist or if there are any questions or concerns that arise at home. 04/26 08:50 Order name: CBC with Diff; Complete Time: 10:20 cp 04/26 10:20 Interpretation: Normal except: MPV 7.0; EOSINOPHIL % 5.7. cp 04/26 08:50 Order name: CMP; Complete Time: 10:20 cp 04/26 10:20 Interpretation: Normal except: CL 111; GFR 73; ALK 128. cp 04/26 08:50 Order name: CRP; Complete Time: 10:20 cp 04/26 08:50 Order name: XRAY Knee RIGHT 3 view; Complete Time: 10:20 cp 04/26 08:50 Order name: US Extremity Venous Unilateral Ltd; Complete Time: 10:20 cp 04/26 08:50 Order name: IV; Complete Time: 09:51 cp Administered Medications: 09:50 Not Given (Patient Refused): fentanyl (pf)25 mcg IVP once kc6 10:38 Drug: Cephalexin PO 500 mg PO once Route: PO; mb9 10:46 Follow up: Response: No adverse reaction mb9 Disposition: 17:51 I was immediately available on-site in the Emergency Department for consultation in the ms3 care of the patient. Disposition Summary: 04/26/24 10:35 Discharge Ordered Notes: Location: Home cp Problem: new cp Symptoms: have improved cp Condition: Stable cp Diagnosis - Pain in right knee cp Followup: cp - With: Private Physician - When: 2 - 3 days - Reason: Recheck today's complaints Discharge Instructions: - Discharge Summary Sheet cp - Acute Knee Pain, Adult cp Forms: - Medication Reconciliation Form cp - Antibiotic Education cp - Prescription Opioid Use cp - Patient Portal Instructions cp - Leadership Thank You Letter cp Prescriptions: - Anaprox DS 550 mg Oral Tablet - take 1 tablet ORAL route every 12 hours As needed; 20 tablet; Refills: 0, cp Product Selection Permitted - Cephalexin 500 mg Oral Capsule - take 1 capsule ORAL route every 8 hours for 10 days; 30 capsule; Refills: 0, cp Product Selection Permitted Signatures: Dispatcher [employer] Tsering Morris RN Miguel Arroyo PA PA cp Sims, Marcus, DO DO ms3 Barbara Rae RN RN mb9 Bailee Rosenberg RN kc6
[2024-04-26] MEDS ORDERED: CEPHALEXIN 250 MG CAP ONE (10:36)
[2024-04-26 10:51] VITALS: BP 125/59; TEMP 98.2
[2024-04-26 10:52] VITALS: O2SAT 98
== END 2024-04-26 10:47 | disposition home or self-care (01) ==
LOC: ER 08:26
DX: M25.561 Pain in right knee (principal)
CPT/HCPCS: 85025; 36415; 80053; 86140; 73562; 93971; J3010; 99284